=== PATIENT | male | born 1950 | race Caucasian/White ===

== ENCOUNTER 2021-01-19 14:23 | Emergency (ER) | payer OTHER, MEDICARE, SELFPAY ==
[2021-01-19 14:24] VITALS: BP 154/76; PULSE 85; RESP 18; TEMP 36.6; O2SAT 99; BMI 16.6
[2021-01-19 14:40] LABS: Glucose Point of Care 43 mg/dL (70-110)
--- NOTE | 2021-01-19 14:44 | ED_ITS ---
Documented by User: DESI Chavez 01/19/21 15:13 HPI - Altered Mental Status General: Chief Complaint: Altered Mental Status Stated Complaint: hypoglycemic episode Time Seen by Provider: 01/19/21 14:29 History of Present Illness: HPI narrative: Patient is a 62-year-old male who comes to the ED via EMS after complaint of being unresponsive episode at dialysis clinic. His blood sugar at the dialysis clinic was 45 per staff. [facility] staff said patient was in a wheelchair and he had no fall or head trauma during hypoglycemic episode. Patient was diaphoretic and unresponsive in the lobby with a blood sugar 45 and 58 per EMS. Patient was given glucagon by EMS and started to become more responsive. Patient has a PEG tube with continual feed that was stopped around noon today. Upon arrival here in the ED patient's blood sugar was 43. Patient is a resident at [facility]. Patient was at dialysis clinic to get kidney function tests performed and is not currently on dialysis. [facility] [place] [facility] [place] [facility]ing [place] patient's medical information. Patient does not appear to communicate well and current mental status could be baseline. Review of Systems Const: Denies: fever(s), chills or fatigue Eyes: Denies: change in vision or eye discomfort ENMT: Denies: throat pain, odynophagia, nasal discharge or nasal congestion Card: Denies: chest pain, palpitations, edema, swelling of feet/ankles, dyspnea on exertion or orthopnea Resp: Denies: dyspnea, productive cough or non-productive cough GI: Denies: abdominal pain, nausea, vomiting, diarrhea, constipation or hematochezia : Denies: flank pain, difficulty urinating, dysuria or hematuria Musc: Denies: neck pain, back pain or extremity swelling Skin/Breast: Denies: rash or new lesions Neuro: Denies: headache(s), numbness in extremities or weakness in extremities Endo: Reports: other (hypoglycemia) Physical Exam Const: COMMON NORMALS: no acute distress and alert EXAM LIMITATIONS: altered mental status (Patient does not communicate but will look into and give yes or no response) GENERAL APPEARANCE: cooperative and comfortable HENMT: COMMON NORMALS: normocephalic HEAD & SCALP: normocephalic MOUTH: Normal oral and palatal mucosa present THROAT: posterior oropharynx normal and uvula midline Neck/C-Spine: COMMON NORMALS: supple GENERAL: Yes normal visual inspection Resp: COMMON NORMALS: normal respiratory effort, No retractions, No use of accessory muscles and clear to auscultation bilaterally AUSCULTATION: clear to auscultation bilaterally Cardio: COMMON NORMALS: regular rate, regular rhythm, S1 normal heart sound present, S2 normal heart sound present, No gallops present (Cardio), No clicks present (Cardio), No murmurs present (Cardio) and Peripheral pulses 2+ throughout RATE: regular rate RHYTHM: regular rhythm HEART SOUNDS: S1 normal heart sound present and S2 normal heart sound present PERIPHERAL PULSES: Peripheral pulses 2+ throughout GI: COMMON NORMALS: Normal to inspection, nondistended, normoactive bowel sounds present, Soft to palpation, non-tender and no masses PALPATION: Yes Soft to palpation : COMMON NORMALS: Yes no CVA tenderness BLADDER/KIDNEY EXAM: Yes no CVA tenderness Back/Pelvis: COMMON NORMALS: no CVA tenderness Extremity: COMMON NORMALS: normal to inspection and no pedal edema Neuro: SENSORIUM/ORIENTATION: Yes alert Skin: GENERAL SKIN EXAM: dry skin Course ED course: Patient is a 70-year-old male comes to the ED with hypoglycemic episode. I performed the initial history and physical exam of patient's case. Due to patient's acuity I then discussed patient case with Dr. Miles and he will be taking over patient care. Vital Signs: Vital signs: Vital Signs Temperature 97.9 F 01/19/21 14:24 Pulse Rate 98 01/19/21 19:05 Respiratory Rate 16 01/19/21 19:05 Blood Pressure 153/98 01/19/21 19:05 Pulse Oximetry 93 01/19/21 19:05 MDM - Altered Mental Status Lab Data: Attestation: I reviewed the patient's lab results. Labs: Lab Results 01/19/21 01/19/21 01/19/21 Range/Units 14:28 14:56 14:56 WBC 17.6 H (4.0-10.0) 10^3/ uL RBC 2.84 L (4.1-5.3) 10^6/u L Hgb 9.4 L (11.7-16.6) g/dL Hct 29.7 L (42.0-52.0) % MCV 104.6 H (80-94) fL MCH 33.1 (28.0-34.0) pg MCHC 31.6 (30.0-36.0) g/dL RDW 14.7 (12.1-15.1) % Plt Count 192 (130-400) 10^3/c mm MPV 11.7 H (7.4-10.4) fL Neut % (Auto) 86.2 % Lymph % (Auto) 6.7 % Braxton % (Auto) 6.2 % Eos % (Auto) 0.1 % Baso % (Auto) 0.2 % Neut # (Auto) 15.18 H (1.8-7.7) 10^3/u L Lymph # (Auto) 1.2 (0.8-4.8) 10^3/u L Braxton # (Auto) 1.1 H (0.2-0.9) 10^3/u L Eos # (Auto) 0.0 (0.0-0.8) 10^3/u L Baso # (Auto) 0.0 (0.0-0.1) 10^3/u L Nucleated RBC % (a uto) 0 % Nucleated RBCs # 0.0 /100WBC PT (12.1-14.9) SECO NDS INR (0.8-1.2) Sodium 135 L (136-145) mmol/L Potassium 4.3 (3.5-5.1) mmol/L Chloride 96 L (98-107) mmol/L Carbon Dioxide 30 H (22-29) mmol/L Anion Gap 13.3 (5-19) BUN 43 H (8-23) mg/dL Creatinine 2.1 H (0.7-1.2) mg/dL GFR Calculation 31.6 L (90-130) mL/min Glucose 191 H (65-115) mg/dL POC Glucose 43 L (70-110) mg/dL Calculated Osmolal ity 296 H (285-295) mOsm/k g Lactate (0.5-2.2) mmol/L Calcium 8.5 (8.5-10.5) mg/dL Total Bilirubin 0.2 (0.15-1.2) mg/dL AST 19 (0-40) U/L ALT 13 (0-41) U/L Alkaline Phosphata se 71 (40-130) IU/L Total Protein 6.5 L (6.6-8.7) g/dL Albumin 3.9 (3.5-5.2) g/dL Globulin 2.6 (1.3-4.6) g/dL Urine Color (Yellow) Urine Appearance (CLEAR) Urine pH (5-7) Ur Specific Gravit y (1.005-1.030) Urine Protein (Negative) Urine Glucose (UA) (Normal) Urine Ketones (Negative) Urine Blood (Negative) Urine Nitrate (Negative) Urine Bilirubin (Negative) Urine Urobilinogen (Negative) mg/dL Ur Leukocyte Nevin ase (Negative) Urine RBC (0-2) /hpf Urine WBC (0-5) /hpf Ur Squamous Epith Cells (0-5) /hpf Amorphous Sediment Urine Bacteria (NONE) /hpf 01/19/21 01/19/21 01/19/21 Range/Units 14:56 15:36 16:50 WBC (4.0-10.0) 10^3/ uL RBC (4.1-5.3) 10^6/u L Hgb (11.7-16.6) g/dL Hct (42.0-52.0) % MCV (80-94) fL MCH (28.0-34.0) pg MCHC (30.0-36.0) g/dL RDW (12.1-15.1) % Plt Count (130-400) 10^3/c mm MPV (7.4-10.4) fL Neut % (Auto) % Lymph % (Auto) % Braxton % (Auto) % Eos % (Auto) % Baso % (Auto) % Neut # (Auto) (1.8-7.7) 10^3/u L Lymph # (Auto) (0.8-4.8) 10^3/u L Braxton # (Auto) (0.2-0.9) 10^3/u L Eos # (Auto) (0.0-0.8) 10^3/u L Baso # (Auto) (0.0-0.1) 10^3/u L Nucleated RBC % (a uto) % Nucleated RBCs # /100WBC PT (12.1-14.9) SECO NDS INR (0.8-1.2) Sodium (136-145) mmol/L Potassium (3.5-5.1) mmol/L Chloride (98-107) mmol/L Carbon Dioxide (22-29) mmol/L Anion Gap (5-19) BUN (8-23) mg/dL Creatinine (0.7-1.2) mg/dL GFR Calculation (90-130) mL/min Glucose (65-115) mg/dL POC Glucose 84 129 H (70-110) mg/dL Calculated Osmolal ity (285-295) mOsm/k g Lactate 0.2 L (0.5-2.2) mmol/L Calcium (8.5-10.5) mg/dL Total Bilirubin (0.15-1.2) mg/dL AST (0-40) U/L ALT (0-41) U/L Alkaline Phosphata se (40-130) IU/L Total Protein (6.6-8.7) g/dL Albumin (3.5-5.2) g/dL Globulin (1.3-4.6) g/dL Urine Color (Yellow) Urine Appearance (CLEAR) Urine pH (5-7) Ur Specific Gravit y (1.005-1.030) Urine Protein (Negative) Urine Glucose (UA) (Normal) Urine Ketones (Negative) Urine Blood (Negative) Urine Nitrate (Negative) Urine Bilirubin (Negative) Urine Urobilinogen (Negative) mg/dL Ur Leukocyte Nevin ase (Negative) Urine RBC (0-2) /hpf Urine WBC (0-5) /hpf Ur Squamous Epith Cells (0-5) /hpf Amorphous Sediment Urine Bacteria (NONE) /hpf 01/19/21 01/19/21 01/19/21 Range/Units 17:20 18:00 19:51 WBC (4.0-10.0) 10^3/ uL RBC (4.1-5.3) 10^6/u L Hgb (11.7-16.6) g/dL Hct (42.0-52.0) % MCV (80-94) fL MCH (28.0-34.0) pg MCHC (30.0-36.0) g/dL RDW (12.1-15.1) % Plt Count (130-400) 10^3/c mm MPV (7.4-10.4) fL Neut % (Auto) % Lymph % (Auto) % Braxton % (Auto) % Eos % (Auto) % Baso % (Auto) % Neut # (Auto) (1.8-7.7) 10^3/u L Lymph # (Auto) (0.8-4.8) 10^3/u L Braxton # (Auto) (0.2-0.9) 10^3/u L Eos # (Auto) (0.0-0.8) 10^3/u L Baso # (Auto) (0.0-0.1) 10^3/u L Nucleated RBC % (a uto) % Nucleated RBCs # /100WBC PT 13.70 (12.1-14.9) SECO NDS INR 1.02 (0.8-1.2) Sodium (136-145) mmol/L Potassium (3.5-5.1) mmol/L Chloride (98-107) mmol/L Carbon Dioxide (22-29) mmol/L Anion Gap (5-19) BUN (8-23) mg/dL Creatinine (0.7-1.2) mg/dL GFR Calculation (90-130) mL/min Glucose (65-115) mg/dL POC Glucose 147 H (70-110) mg/dL Calculated Osmolal ity (285-295) mOsm/k g Lactate (0.5-2.2) mmol/L Calcium (8.5-10.5) mg/dL Total Bilirubin (0.15-1.2) mg/dL AST (0-40) U/L ALT (0-41) U/L Alkaline Phosphata se (40-130) IU/L Total Protein (6.6-8.7) g/dL Albumin (3.5-5.2) g/dL Globulin (1.3-4.6) g/dL Urine Color Yellow (Yellow) Urine Appearance Clear (CLEAR) Urine pH 7 (5-7) Ur Specific Gravit y 1.000 L (1.005-1.030) Urine Protein 1+ H (Negative) Urine Glucose (UA) Trace H (Normal) Urine Ketones Negative (Negative) Urine Blood Neg (Negative) Urine Nitrate Negative (Negative) Urine Bilirubin Neg (Negative) Urine Urobilinogen Norm (Negative) mg/dL Ur Leukocyte Nevin ase Negative (Negative) Urine RBC 0-4 H (0-2) /hpf Urine WBC 0-4 H (0-5) /hpf Ur Squamous Epith Cells 0-4 H (0-5) /hpf Amorphous Sediment Not Reportable Urine Bacteria Trace (NONE) /hpf Discharge Plan Discharge Patient Disposition: Home Clinical Impression: Hypoglycemia, Acute dehydration, Chronic kidney disease Condition: Stable Prescriptions: New Lantus Solostar U-100 Insulin 100 unit/mL (3 mL) insulin pen 10 unit SUBCUT BID Qty: 3 RF: 0 Discontinued Lantus Solostar U-100 Insulin 100 unit/mL (3 mL) Insulin Pen 15 unit SUBCUT BID RF: 0 No Action carvedilol 6.25 mg Tablet 6.25 mg feeding tube BID RF: 0 citalopram 10 mg/5 mL solution 40 mg feeding tube DAILY@07 RF: 0 Aspir-81 81 mg Tablet,Delayed Release (Dr/Ec) 81 mg feeding tube DAILY@07 RF: 0 GlucaGen HypoKit 1 mg Recon Soln 1 mg SUBCUT PRN RF: 0 Humalog Kobe KwikPen U-100 100 unit/mL Insulin Pen, Half-Unit See Rx Instructions .ROUTE .COMPLEX RF: 0 sulfasalazine 500 mg tablet 1,000 mg feeding tube TID@07,12,20 RF: 0 potassium chloride 20 mEq/15 mL Liquid 10 meq PO DAILY@08 RF: 0 lorazepam 0.5 mg Tablet 0.5 mg feeding tube BID RF: 0 risperidone 1 mg/mL solution 0.25 mg PO DAILY@07 RF: 0 sodium bicarbonate 650 mg Tablet 1,300 mg feeding tube TID@,12,20 RF: 0 pyridoxine (vitamin B6) 50 mg Tablet 50 mg feeding tube DAILY@07 RF: 0 nystatin 100,000 unit/gram Powder 1 applic TOPICAL BID RF: 0 diclofenac sodium 1 % Gel 4 g TOPICAL BID RF: 0 Jevity 1.5 Mark 0.06 gram-1.5 kcal/mL Liquid See Rx Instructions .ROUTE .COMPLEX RF: 0 Discharge Orders: Discharge ED (Routine); Ordered 01/19/21 Ordered By: Chris Miles Referrals: Rudolph Birmingham DO [Primary Care Provider] - Discharge Diet: Advance as tolerated Discharge Activity: Resume usual activity Patient Instructions: Opioid Safety Activity Restrictions/Additional Instructions: You have had an episode of dehydration and low blood sugar. We have restarted your food pump and it has now normalized. I discussed with your nurse that you have had multiple episodes at the [place] [facility] of low blood sugar over the past couple days. Please lower your Lantus dose to 10 units twice a day and hold the sliding scale insulin if you have low blood sugars. Return to the ER with low blood sugars or any worrisome symptoms. Please continue to check your blood pressures at the [place] [facility] and bring them to your doctor in a couple days as your blood pressure has been high here Coding Level of Care Code ED Child Psychology Teacher for Chg Fwd Exam Comprehensive Documented by User: Chris Miles MD 01/19/21 20:04 HPI - Altered Mental Status General: Chief Complaint: Altered Mental Status Stated Complaint: hypoglycemic episode Time Seen by Provider: 01/19/21 14:29 Course Vital Signs: Vital signs: Vital Signs Temperature 97.9 F 01/19/21 14:24 Pulse Rate 98 01/19/21 19:05 Respiratory Rate 16 01/19/21 19:05 Blood Pressure 153/98 01/19/21 19:05 Pulse Oximetry 93 01/19/21 19:05 MDM - Altered Mental Status MDM Narrative: Medical decision making narrative: The patient is a 70-year-old male with past medical history diabetes, chronic kidney disease, stroke with history of dysphagia and G-tube. He was sent to a dialysis center for kidney function tests and was found unresponsive there. Glucose was hypoglycemic in the 40s. With significant difficulty getting an IV on him of the ultimately we did. He was given multiple doses of glucagon with good increase in his blood glucose. Also he was given a liter of fluids which greatly helped his condition as well. He admitted to being back to his baseline and wants to go back to his [place] [facility]. His kidney function is unchanged from his most recent [place] [facility] lab December 30 which shows BUN of 45 and creatinine of 2.3. His numbers are slightly better than that here. No significant cause of infection found he has a normal urine and chest x-ray. White count was 17.6 but that is likely from the stress of hypoglycemia and dehydration. Head CT normal. He is stable for discharge back to the [place] [facility]. I lowered his Lantus dose and recommended she continue to monitor his glucose and bring him back with any hypoglycemia or altered mental status. Lab Data: Labs: Lab Results 01/19/21 01/19/21 01/19/21 Range/Units 14:28 14:56 14:56 WBC 17.6 H (4.0-10.0) 10^3/ uL RBC 2.84 L (4.1-5.3) 10^6/u L Hgb 9.4 L (11.7-16.6) g/dL Hct 29.7 L (42.0-52.0) % MCV 104.6 H (80-94) fL MCH 33.1 (28.0-34.0) pg MCHC 31.6 (30.0-36.0) g/dL RDW 14.7 (12.1-15.1) % Plt Count 192 (130-400) 10^3/c mm MPV 11.7 H (7.4-10.4) fL Neut % (Auto) 86.2 % Lymph % (Auto) 6.7 % Braxton % (Auto) 6.2 % Eos % (Auto) 0.1 % Baso % (Auto) 0.2 % Neut # (Auto) 15.18 H (1.8-7.7) 10^3/u L Lymph # (Auto) 1.2 (0.8-4.8) 10^3/u L Braxton # (Auto) 1.1 H (0.2-0.9) 10^3/u L Eos # (Auto) 0.0 (0.0-0.8) 10^3/u L Baso # (Auto) 0.0 (0.0-0.1) 10^3/u L Nucleated RBC % (a uto) 0 % Nucleated RBCs # 0.0 /100WBC PT (12.1-14.9) SECO NDS INR (0.8-1.2) Sodium 135 L (136-145) mmol/L Potassium 4.3 (3.5-5.1) mmol/L Chloride 96 L (98-107) mmol/L Carbon Dioxide 30 H (22-29) mmol/L Anion Gap 13.3 (5-19) BUN 43 H (8-23) mg/dL Creatinine 2.1 H (0.7-1.2) mg/dL GFR Calculation 31.6 L (90-130) mL/min Glucose 191 H (65-115) mg/dL POC Glucose 43 L (70-110) mg/dL Calculated Osmolal ity 296 H (285-295) mOsm/k g Lactate (0.5-2.2) mmol/L Calcium 8.5 (8.5-10.5) mg/dL Total Bilirubin 0.2 (0.15-1.2) mg/dL AST 19 (0-40) U/L ALT 13 (0-41) U/L Alkaline Phosphata se 71 (40-130) IU/L Total Protein 6.5 L (6.6-8.7) g/dL Albumin 3.9 (3.5-5.2) g/dL Globulin 2.6 (1.3-4.6) g/dL Urine Color (Yellow) Urine Appearance (CLEAR) Urine pH (5-7) Ur Specific Gravit y (1.005-1.030) Urine Protein (Negative) Urine Glucose (UA) (Normal) Urine Ketones (Negative) Urine Blood (Negative) Urine Nitrate (Negative) Urine Bilirubin (Negative) Urine Urobilinogen (Negative) mg/dL Ur Leukocyte Nevin ase (Negative) Urine RBC (0-2) /hpf Urine WBC (0-5) /hpf Ur Squamous Epith Cells (0-5) /hpf Amorphous Sediment Urine Bacteria (NONE) /hpf 01/19/21 01/19/21 01/19/21 Range/Units 14:56 15:36 16:50 WBC (4.0-10.0) 10^3/ uL RBC (4.1-5.3) 10^6/u L Hgb (11.7-16.6) g/dL Hct (42.0-52.0) % MCV (80-94) fL MCH (28.0-34.0) pg MCHC (30.0-36.0) g/dL RDW (12.1-15.1) % Plt Count (130-400) 10^3/c mm MPV (7.4-10.4) fL Neut % (Auto) % Lymph % (Auto) % Braxton % (Auto) % Eos % (Auto) % Baso % (Auto) % Neut # (Auto) (1.8-7.7) 10^3/u L Lymph # (Auto) (0.8-4.8) 10^3/u L Braxton # (Auto) (0.2-0.9) 10^3/u L Eos # (Auto) (0.0-0.8) 10^3/u L Baso # (Auto) (0.0-0.1) 10^3/u L Nucleated RBC % (a uto) % Nucleated RBCs # /100WBC PT (12.1-14.9) SECO NDS INR (0.8-1.2) Sodium (136-145) mmol/L Potassium (3.5-5.1) mmol/L Chloride (98-107) mmol/L Carbon Dioxide (22-29) mmol/L Anion Gap (5-19) BUN (8-23) mg/dL Creatinine (0.7-1.2) mg/dL GFR Calculation (90-130) mL/min Glucose (65-115) mg/dL POC Glucose 84 129 H (70-110) mg/dL Calculated Osmolal ity (285-295) mOsm/k g Lactate 0.2 L (0.5-2.2) mmol/L Calcium (8.5-10.5) mg/dL Total Bilirubin (0.15-1.2) mg/dL AST (0-40) U/L ALT (0-41) U/L Alkaline Phosphata se (40-130) IU/L Total Protein (6.6-8.7) g/dL Albumin (3.5-5.2) g/dL Globulin (1.3-4.6) g/dL Urine Color (Yellow) Urine Appearance (CLEAR) Urine pH (5-7) Ur Specific Gravit y (1.005-1.030) Urine Protein (Negative) Urine Glucose (UA) (Normal) Urine Ketones (Negative) Urine Blood (Negative) Urine Nitrate (Negative) Urine Bilirubin (Negative) Urine Urobilinogen (Negative) mg/dL Ur Leukocyte Nevin ase (Negative) Urine RBC (0-2) /hpf Urine WBC (0-5) /hpf Ur Squamous Epith Cells (0-5) /hpf Amorphous Sediment Urine Bacteria (NONE) /hpf 01/19/21 01/19/21 01/19/21 Range/Units 17:20 18:00 19:51 WBC (4.0-10.0) 10^3/ uL RBC (4.1-5.3) 10^6/u L Hgb (11.7-16.6) g/dL Hct (42.0-52.0) % MCV (80-94) fL MCH (28.0-34.0) pg MCHC (30.0-36.0) g/dL RDW (12.1-15.1) % Plt Count (130-400) 10^3/c mm MPV (7.4-10.4) fL Neut % (Auto) % Lymph % (Auto) % Braxton % (Auto) % Eos % (Auto) % Baso % (Auto) % Neut # (Auto) (1.8-7.7) 10^3/u L Lymph # (Auto) (0.8-4.8) 10^3/u L Braxton # (Auto) (0.2-0.9) 10^3/u L Eos # (Auto) (0.0-0.8) 10^3/u L Baso # (Auto) (0.0-0.1) 10^3/u L Nucleated RBC % (a uto) % Nucleated RBCs # /100WBC PT 13.70 (12.1-14.9) SECO NDS INR 1.02 (0.8-1.2) Sodium (136-145) mmol/L Potassium (3.5-5.1) mmol/L Chloride (98-107) mmol/L Carbon Dioxide (22-29) mmol/L Anion Gap (5-19) BUN (8-23) mg/dL Creatinine (0.7-1.2) mg/dL GFR Calculation (90-130) mL/min Glucose (65-115) mg/dL POC Glucose 147 H (70-110) mg/dL Calculated Osmolal ity (285-295) mOsm/k g Lactate (0.5-2.2) mmol/L Calcium (8.5-10.5) mg/dL Total Bilirubin (0.15-1.2) mg/dL AST (0-40) U/L ALT (0-41) U/L Alkaline Phosphata se (40-130) IU/L Total Protein (6.6-8.7) g/dL Albumin (3.5-5.2) g/dL Globulin (1.3-4.6) g/dL Urine Color Yellow (Yellow) Urine Appearance Clear (CLEAR) Urine pH 7 (5-7) Ur Specific Gravit y 1.000 L (1.005-1.030) Urine Protein 1+ H (Negative) Urine Glucose (UA) Trace H (Normal) Urine Ketones Negative (Negative) Urine Blood Neg (Negative) Urine Nitrate Negative (Negative) Urine Bilirubin Neg (Negative) Urine Urobilinogen Norm (Negative) mg/dL Ur Leukocyte Nevin ase Negative (Negative) Urine RBC 0-4 H (0-2) /hpf Urine WBC 0-4 H (0-5) /hpf Ur Squamous Epith Cells 0-4 H (0-5) /hpf Amorphous Sediment Not Reportable Urine Bacteria Trace (NONE) /hpf Discharge Plan Discharge Patient Disposition: Home Clinical Impression: Hypoglycemia, Acute dehydration, Chronic kidney disease Condition: Stable Prescriptions: New Lantus Solostar U-100 Insulin 100 unit/mL (3 mL) insulin pen 10 unit SUBCUT BID Qty: 3 RF: 0 Discontinued Lantus Solostar U-100 Insulin 100 unit/mL (3 mL) Insulin Pen 15 unit SUBCUT BID RF: 0 No Action carvedilol 6.25 mg Tablet 6.25 mg feeding tube BID RF: 0 citalopram 10 mg/5 mL solution 40 mg feeding tube DAILY@07 RF: 0 Aspir-81 81 mg Tablet,Delayed Release (Dr/Ec) 81 mg feeding tube DAILY@07 RF: 0 GlucaGen HypoKit 1 mg Recon Soln 1 mg SUBCUT PRN RF: 0 Humalog Kobe KwikPen U-100 100 unit/mL Insulin Pen, Half-Unit See Rx Instructions .ROUTE .COMPLEX RF: 0 sulfasalazine 500 mg tablet 1,000 mg feeding tube TID@07,12,20 RF: 0 potassium chloride 20 mEq/15 mL Liquid 10 meq PO DAILY@08 RF: 0 lorazepam 0.5 mg Tablet 0.5 mg feeding tube BID RF: 0 risperidone 1 mg/mL solution 0.25 mg PO DAILY@07 RF: 0 sodium bicarbonate 650 mg Tablet 1,300 mg feeding tube TID@07,12,20 RF: 0 pyridoxine (vitamin B6) 50 mg Tablet 50 mg feeding tube DAILY@07 RF: 0 nystatin 100,000 unit/gram Powder 1 applic TOPICAL BID RF: 0 diclofenac sodium 1 % Gel 4 g TOPICAL BID RF: 0 Jevity 1.5 Mark 0.06 gram-1.5 kcal/mL Liquid See Rx Instructions .ROUTE .COMPLEX RF: 0 Discharge Orders: Discharge ED (Routine); Ordered 01/19/21 Ordered By: Chris Miles Referrals: Rudolph Birmingham DO [Primary Care Provider] - Discharge Diet: Advance as tolerated Discharge Activity: Resume usual activity Patient Instructions: Opioid Safety Activity Restrictions/Additional Instructions: You have had an episode of dehydration and low blood sugar. We have restarted your food pump and it has now normalized. I discussed with your nurse that you have had multiple episodes at the [place] [facility] of low blood sugar over the past couple days. Please lower your Lantus dose to 10 units twice a day and hold the sliding scale insulin if you have low blood sugars. Return to the ER with low blood sugars or any worrisome symptoms. Please continue to check your blood pressures at the [place] [facility] and bring them to your doctor in a couple days as your blood pressure has been high here Coding Level of Care Code ED Child Psychology Teacher for [place] Fwd Exam Comprehensive
--- NOTE | 2021-01-19 15:13 | PC.NURSE ---
Multiple attempts at IV placement unsuccessful. Unable to get US guided or straight stick IV access. Dr Miles notified.
[2021-01-19 15:40] LABS: Glucose Point of Care 84 mg/dL (70-110)
[2021-01-19 16:03] VITALS: BP 159/81; PULSE 81; RESP 12; O2SAT 100
--- NOTE | 2021-01-19 16:04 | PC.NURSE ---
US guided IV placed by Ryan Gillespie RN. Blood drawn and sent to lab. Pt started on Jevity 1.2. Residual checked and showed 0ml. Tube flushed with 30ml water. Tube feed started at 50ml/hr with a 60ml flush every 4 hours per [facility] staff instructions.
[2021-01-19 16:21] LABS: Basophils % 0.2 %; Eosinophils % 0.1 %; Hematocrit 29.7 % (42.0-52.0); Hemoglobin 9.4 g/dL (11.7-16.6); Lymphocytes # 1.2 10^3/uL (0.8-4.8); Lymphocytes % 6.7 %; Mean Corpuscular HGB Conc 31.6 g/dL (30.0-36.0); Mean Corpuscular Hemoglobin 33.1 pg (28.0-34.0); Mean Corpuscular Volume 104.6 fL (80-94); Mean Platelet Volume 11.7 fL (7.4-10.4); Monocytes # 1.1 10^3/uL (0.2-0.9); Monocytes % 6.2 %; Neutrophils # 15.18 10^3/uL (1.8-7.7); Neutrophils % 86.2 %; Nucleated Red Blood Cells % 0 %; Platelet Count 192 10^3/cmm (130-400); Red Blood Count 2.84 10^6/uL (4.1-5.3); Red Cell Distribution Width 14.7 % (12.1-15.1); White Blood Count 17.6 10^3/uL (4.0-10.0)
[2021-01-19 16:45] LABS: Alanine Aminotransferase 13 U/L (0-41); Albumin Level 3.9 g/dL (3.5-5.2); Alkaline Phosphatase 71 IU/L (40-130); Anion Gap 13.3 (5-19); Aspartate Amino Transferase 19 U/L (0-40); Blood Urea Nitrogen 43 mg/dL (8-23); Calcium 8.5 mg/dL (8.5-10.5); Carbon Dioxide 30 mmol/L (22-29); Chloride 96 mmol/L (98-107); Globulin 2.6 g/dL (1.3-4.6); Glomerular Filtration Rate 31.6 mL/min (90-130); Glucose 191 mg/dL (65-115); Osmolality Calculated 296 mOsm/kg (285-295); Potassium 4.3 mmol/L (3.5-5.1); Sodium 135 mmol/L (136-145); Total Bilirubin 0.2 mg/dL (0.15-1.2); Total Protein 6.5 g/dL (6.6-8.7)
--- NOTE | 2021-01-19 16:49 | PC.PHAR ---
[facility] KEPT TRYING TO FAX OVER MAR AND TREATMENT LIST-CAROLYN FROM [facility] BROUGHT OVER MAR AND TREATMENT LIST-MADE COPY AND PUT ONE IN PTS CHART-CAROLYN STATES THE PT HAD THE AM LANTUS BUT NONE OF THE SS HUMALOG-
[2021-01-19 16:53] LABS: Glucose Point of Care 129 mg/dL (70-110)
--- NOTE | 2021-01-19 16:54 | XRR_ITS ---
PROCEDURE INFORMATION: Exam: XR Chest Exam date and time: 01/19/2021 5:10 PM Age: 70 years old Clinical indication: Shortness of breath; Additional info: Reduced breath sounds TECHNIQUE: Imaging protocol: XR of the chest. Views: 1 view. Total images: 1 COMPARISON: No relevant prior studies available. FINDINGS: Lungs: No visible active interstitial or alveolar airspace disease. Pleural spaces: Unremarkable. No pleural effusion. No pneumothorax. Heart/Mediastinum: Cardiac structures and configuration with arteriosclerosis. Bones/joints: Left shoulder prosthesis. XR/XR chest 1V portable [id number] IMPRESSION: Nonacute.
--- NOTE | 2021-01-19 16:54 | CTR_ITS ---
PROCEDURE INFORMATION: Exam: CT Head Without Contrast Exam date and time: 01/19/2021 5:09 PM Age: 70 years old Clinical indication: Altered mental status/memory loss TECHNIQUE: Imaging protocol: Computed tomography of the head without contrast. Total images: 188 Radiation optimization: All CT scans at this facility use at least one of these dose optimization techniques: automated exposure control; mA and/or kV adjustment per patient size (includes targeted exams where dose is matched to clinical indication); or iterative reconstruction. COMPARISON: No relevant prior studies available. RADIATION DOSE METRICS: Total DLP (mGy-cm): 668.34 FINDINGS: Brain: No evidence of active or acute intracranial pathologic process, hemorrhage, or trauma. 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 Moderate small vessel ischemic disease with senile periventricular leukomalacia. No visible hyperdense MCA or insular ribbon sign Cerebral and cerebellar atrophy with ventricular dilatation greater than that anticipated for patient's chronological age. No mass effect. No midline shift. Cerebral ventricles: No ventriculomegaly. Bones/joints: Unremarkable. No acute fracture. Paranasal sinuses: Visualized sinuses are unremarkable. No fluid levels. Mastoid air cells: Visualized mastoid air cells are well aerated. Soft tissues: Unremarkable. CT/CT head wo con* [id number] IMPRESSION: No evidence of active or acute intracranial pathologic process, hemorrhage, or trauma. Radiation Dose CTDIVOL = (mGy): DLP = 668.34 (mGy-cm)
[2021-01-19 17:12] LABS: Lactate (Lactic Acid level) 0.2 mmol/L (0.5-2.2)
[2021-01-19 18:01] LABS: INR 1.02 (0.8-1.2)
[2021-01-19] MEDS: sodium chloride 0.9% 1,000 ML 999 ML IV (19:02)
[2021-01-19] MEDS: cefTRIAXone 1,000 MG in sodium chloride 0.9% (plus) 50 ML 100 MG IV (19:02)
[2021-01-19 19:05] VITALS: BP 153/98; PULSE 98; RESP 16; O2SAT 93
[2021-01-19 19:27] LABS: Add Urine Microscopic? YES; Bacteria Urine TRACE /hpf; Bilirubin Urine Neg (Negative); Blood Urine Neg (Negative); Glucose Urine UA Trace (Normal); Ketones Urine Negative (Negative); Leukocyte Esterase Urine Negative (Negative); Nitrate Urine Negative (Negative); Protein Urine 1+ (Negative); RBC Urine 0-4 /hpf (0-2); Squamous Epithelial Cell Urine 0-4 /hpf (0-5); Urine Appearance Clear (CLEAR); Urine Color Yellow (Yellow); Urobilinogen Urine Norm (Negative); WBC Urine 0-4 /hpf (0-5); pH Urine 7 (5-7)
[2021-01-19 19:54] LABS: Glucose Point of Care 147 mg/dL (70-110)
[2021-01-19 21:34] VITALS: PULSE 102; RESP 18; O2SAT 96
== END 2021-01-19 21:36 | disposition home or self-care (01) ==
PROVIDERS: Physician Assistant; Emergency Provider Family Medicine; PCP Internal Medicine
DX: E16.2 Hypoglycemia, unspecified (principal); N18.9 Chronic kidney disease, unspecified; Z99.2 Dependence on renal dialysis; E86.0 Dehydration; Z79.82 Long term (current) use of aspirin; Z79.4 Long term (current) use of insulin
CPT/HCPCS: 36415; 36416; 70450; 71045; 80053; 81001; 82962; 83605; 85025; 85610; 96361; 96365; 96372; 96375; 99284; J0696; J1610; J7030

== ENCOUNTER 2021-04-01 10:17 | Emergency (ER) | payer OTHER, MEDICARE, SELFPAY ==
[2021-04-01 10:19] VITALS: BP 182/92; PULSE 78; RESP 17; TEMP 37.1; O2SAT 98; BMI 18.1
[2021-04-01 10:29] VITALS: BP 168/90; PULSE 74; RESP 18; O2SAT 98
--- NOTE | 2021-04-01 10:51 | ED_ITS ---
HPI - General Adult General: Chief complaint: General Medical Stated complaint: NEEDS PEG TUBE REPLACED Time Seen by Provider: 04/01/21 10:18 History of Present Illness: HPI narrative: 60-year-old male presents emergency room from local correction after feeding tube having been displaced. Its twice in the past week evidently this is happened. No other complaints or problems. Onset (ago): minute(s) Associated symptoms: Deny chest pain, dyspnea, malaise, nausea or vomiting Review of Systems Const: Denies: fever(s), chills, body aches, change in appetite, fatigue or malaise Card: Denies: chest pain, edema, dyspnea on exertion or orthopnea Resp: Denies: dyspnea, productive cough or non-productive cough GI: Denies: abdominal pain, nausea, vomiting, hematemesis, coffee ground emesis, diarrhea, constipation, bloating, hematochezia or melena Physical Exam Const: COMMON NORMALS: no acute distress GENERAL APPEARANCE: cooperative and comfortable HENMT: COMMON NORMALS: normocephalic, atraumatic and hearing grossly normal bilaterally HEAD & SCALP: normocephalic and atraumatic Neck/C-Spine: COMMON NORMALS: no JVD Resp: COMMON NORMALS: normal respiratory effort, No retractions, No use of accessory muscles and clear to auscultation bilaterally AUSCULTATION: clear to auscultation bilaterally Cardio: COMMON NORMALS: no JVD, regular rate, regular rhythm and No murmurs present (Cardio) RATE: regular rate RHYTHM: regular rhythm GI: COMMON NORMALS: Soft to palpation and No hepatosplenomegaly present AUSCULTATION: Yes normoactive bowel sounds PALPATION: Yes Soft to palpation, No Tenderness to palpation present (GI), No Guarding due to palpation present (GI) and Yes No hepatosplenomegaly present Extremity: COMMON NORMALS: normal to inspection, capillary refill normal, no clubbing, cyanosis or edema, no calf tenderness and no pedal edema Skin: COMMON NORMALS: no rashes or lesions noted GENERAL SKIN EXAM: no rashes or lesions noted Procedures Feeding Tube Replacement Type of Tube: gastrostomy Insertion Site Prior to Procedure: clean Tube Used for Reinsertion: other Citizen [place] Tube Size (F): 17 Balloon size (mL): 7 Verification of Placement: auscultation Tube Secured by: attachment device Patient Tolerated Procedure: well Complications: local bleeding (minor) Course Vital Signs: Vital signs: Vital Signs Temperature 98.7 F 04/01/21 10:19 Pulse Rate 74 04/01/21 10:29 Respiratory Rate 18 04/01/21 10:29 Blood Pressure 168/90 04/01/21 10:29 Pulse Oximetry 98 04/01/21 10:29 MDM - General Adult MDM Narrative: Medical decision making narrative: Abdominal wall ostomy site in place with some small amount of dried blood about it no active bleeding. GI tube replaced with moderate difficulty. Was able to place and secure. Will discharge back to the correction small amount of blood around the eyes from irritation from placement of the tube no active bleeding of concern. Discharge Plan Discharge Patient Disposition: Home Clinical Impression: PEG tube malfunction Condition: Stable Prescriptions: No Action carvedilol 6.25 mg Tablet 6.25 mg feeding tube BID RF: 0 citalopram 10 mg/5 mL solution 40 mg feeding tube DAILY@07 RF: 0 Aspir-81 81 mg Tablet,Delayed Release (Dr/Ec) 81 mg feeding tube DAILY@07 RF: 0 GlucaGen HypoKit 1 mg Recon Soln 1 mg SUBCUT PRN RF: 0 Humalog Kobe KwikPen U-100 100 unit/mL Insulin Pen, Half-Unit See Rx Instructions .ROUTE .COMPLEX RF: 0 sulfasalazine 500 mg tablet 1,000 mg feeding tube TID@, RF: 0 potassium chloride 20 mEq/15 mL Liquid 10 meq PO DAILY@08 RF: 0 lorazepam 0.5 mg Tablet 0.5 mg feeding tube BID RF: 0 risperidone 1 mg/mL solution 0.25 mg PO DAILY@07 RF: 0 sodium bicarbonate 650 mg Tablet 1,300 mg feeding tube TID@,20 RF: 0 pyridoxine (vitamin B6) 50 mg Tablet 50 mg feeding tube DAILY@07 RF: 0 nystatin 100,000 unit/gram Powder 1 applic TOPICAL BID RF: 0 diclofenac sodium 1 % Gel 4 g TOPICAL BID RF: 0 Jevity 1.5 Mark 0.06 gram-1.5 kcal/mL Liquid See Rx Instructions .ROUTE .COMPLEX RF: 0 Lantus Solostar U-100 Insulin 100 unit/mL (3 mL) insulin pen 10 unit SUBCUT BID Qty: 3 RF: 0 Discharge Orders: Discharge ED (Routine); Ordered 04/01/21 Ordered By: Melvin Lipscomb Referrals: Rudolph Birmingham DO [Primary Care Provider] - Discharge Diet: Usual diet Discharge Activity: Resume usual activity Patient Instructions: Opioid Safety Coding Level of Care Code ED Meat Curer for Chg Fwd Exam Comprehensive
[2021-04-01 11:53] VITALS: BP 168/90; PULSE 87; RESP 17; O2SAT 100
== END 2021-04-01 12:02 | disposition home or self-care (01) ==
PROVIDERS: Emergency Provider Family Medicine; PCP Internal Medicine
DX: K94.20 Gastrostomy complication, unspecified (principal); Z79.82 Long term (current) use of aspirin; Z79.4 Long term (current) use of insulin
CPT/HCPCS: 43762; 99282

== ENCOUNTER 2021-07-11 10:41 | Emergency (ER) | payer OTHER, MEDICARE, SELFPAY ==
[2021-07-11 10:53] VITALS: BP 197/93; PULSE 110; RESP 18; TEMP 36.9; O2SAT 98; BMI 20.7
--- NOTE | 2021-07-11 11:00 | XRR_ITS ---
PROCEDURE INFORMATION: Exam: XR Chest Exam date and time: 07/11/2021 11:00 AM Age: 71 years old Clinical indication: Cough and dyspnea; Patient HX: PT non verbal, unable to obtain history; Additional info: Dyspnea/cough TECHNIQUE: Imaging protocol: XR of the chest. Views: 1 view. COMPARISON: CR XR chest 1V portable [id number] 01/19/2021 5:51 PM FINDINGS: Lungs: Unremarkable. No consolidation. Pleural spaces: Unremarkable. No pleural effusion. No pneumothorax. Heart/Mediastinum: Unremarkable. No cardiomegaly. Bones/joints: No acute findings. Left shoulder prosthesis. XR/XR chest 1V portable [id number] IMPRESSION: No acute findings. Radiation Dose CTDIVOL = (mGy): DLP = (mGy-cm)
--- NOTE | 2021-07-11 11:00 | CT_ITS ---
WS: [id number] CT ABDOMEN PELVIS TECHNIQUE: Noncontrast CT of the abdomen and pelvis with coronal and sagittal reformatted images. CLINICAL INFORMATION: abd pain COMPARISON: CT November 21, 2020 DLP: 1098.[address] scans at [facility] use at least one of these dose optimization techniques: automated e xposure control; mA and/or kV adjustment per patient size (includes targeted exams where dose is matc hed to clinical indication); or iterative reconstruction. FINDINGS: Lung bases are well aerated. Stable gastrostomy. Noncontrast liver is normal. Small esophageal hiatal hernia. Noncontrast spleen is normal. Fatty atrophy of the pancreas. Adrenal glands are normal. Bila teral renal cortical atrophy. Bilateral renal cysts largest on the right measuring 3.2 cm. No hydrone phrosis. Normal caliber abdominal aorta. Bilateral THAs degrade images in the pelvis. Normal sigmoid colon. Prior postoperative changes right hemicolectomy with anastomosis. No evidence o f small or large bowel obstruction. Normal caliber small bowel. Persistent air within the colon. No a bdominal or pelvic lymphadenopathy. CT/CT abdomen pelvis wo con [id number] IMPRESSION: 1. No acute abdominal or pelvic findings. 2. Stable cholelithiasis. No gallbladder wall thickening or pericholecystic fl uid. 3. Stable gastrostomy with small esophageal hiatal hernia. 4. Bilateral renal cortical atrophy. No hydronephrosis. 5. Bilateral renal cysts. 6. Prior postoperative changes right hemicolectomy. No evidence of small or la rge bowel obstruction. 7. Bilateral THAs. .
[2021-07-11 11:37] VITALS: BP 197/93; PULSE 105; RESP 20; O2SAT 99
[2021-07-11 11:50] LABS: Basophils % 0.2 %; Eosinophils # 0.1 10^3/uL (0.0-0.8); Eosinophils % 0.7 %; Hematocrit 31.7 % (42.0-52.0); Hemoglobin 10.2 g/dL (11.7-16.6); Lymphocytes # 1.6 10^3/uL (0.8-4.8); Lymphocytes % 17.6 %; Mean Corpuscular HGB Conc 32.2 g/dL (30.0-36.0); Mean Corpuscular Hemoglobin 32.6 pg (28.0-34.0); Mean Corpuscular Volume 101.3 fl (80-94); Mean Platelet Volume 10.7 fL (7.4-10.4); Monocytes # 0.8 10^3/uL (0.2-0.9); Neutrophils # 6.36 10^3/uL (1.8-7.7); Nucleated Red Blood Cells % 0 %; Platelet Count 220 10^3/cmm (130-400); Red Blood Count 3.13 10^6/uL (4.1-5.3); Red Cell Distribution Width 12.2 % (12.1-15.1); White Blood Count 8.8 10^3/uL (4.0-10.0)
[2021-07-11 11:52] LABS: Blood Urine 2+ (Negative); Glucose Urine UA 4+ (Normal); Ketones Urine Negative (Negative); Protein Urine Trace (Negative); Specific Gravity, Urine 1.005 (1.005-1.030); Urine Appearance Clear (CLEAR); Urine Color Yellow (Yellow); pH Urine 7 (5-7)
[2021-07-11 11:53] LABS: Add Urine Microscopic? YES; Bilirubin Urine Neg (Negative); Leukocyte Esterase Urine Negative (Negative); Nitrate Urine Negative (Negative); Urobilinogen Urine Norm (Negative); WBC Urine RARE /hpf (0-5)
--- NOTE | 2021-07-11 11:53 | W.ED.ABDPA2 ---
HPI - Abdominal Pain General: Chief Complaint: Abdominal Pain Stated Complaint: RLQ PAIN Time Seen by Provider: 07/11/21 10:46 History of Present Illness: HPI narrative: 71-year-old male resident of a assisted. He has limited communication due to cognitive dysfunction. He is relating that he has pain in the indicates to the right lower quadrant. There is no report of vomiting or diarrhea. Patient is diabetic. MD elicited complaint: abdominal pain Onset (ago): hour(s) Pain Consistency: constant Location: RLQ Severity: moderate Associated Symptoms: Reports GI cramping and poor appetite; Denies bloating, change in bowel habits, change in stool character, chills, coffee ground emesis, diarrhea, fever(s), hematochezia, hematuria, hematemesis, fecal incontinence, loose stools, nausea and vomiting Review of Systems General: Reports: Other (Limited due to patient's mental capacity and ability to communicate) Const: Denies: fever(s) or chills GI: Reports: GI cramping; Denies: nausea, vomiting, hematemesis, coffee ground emesis, diarrhea, bloating, fecal incontinence, change in bowel habits, change in stool character or hematochezia : Denies: hematuria Physical Exam Const: COMMON NORMALS: no acute distress ORIENTATION/CONSCIOUSNESS: Yes awake, Yes oriented to person, Yes oriented to place and Yes oriented to time HENMT: COMMON NORMALS: normocephalic, atraumatic and hearing grossly normal bilaterally HEAD & SCALP: normocephalic and atraumatic Neck/C-Spine: COMMON NORMALS: no JVD Resp: COMMON NORMALS: normal respiratory effort, No retractions, No use of accessory muscles and clear to auscultation bilaterally AUSCULTATION: clear to auscultation bilaterally Cardio: COMMON NORMALS: no JVD, regular rate, regular rhythm and No murmurs present (Cardio) RATE: regular rate RHYTHM: regular rhythm GI: COMMON NORMALS: Soft to palpation and No hepatosplenomegaly present AUSCULTATION: Yes normoactive bowel sounds PALPATION: Yes Soft to palpation, No Tenderness to palpation present (GI), No Guarding due to palpation present (GI) and Yes No hepatosplenomegaly present Extremity: COMMON NORMALS: normal to inspection, capillary refill normal, no clubbing, cyanosis or edema, no calf tenderness and no pedal edema Neuro: SENSORIUM/ORIENTATION: Yes oriented to person, Yes oriented to place and Yes oriented to time Skin: COMMON NORMALS: no rashes or lesions noted GENERAL SKIN EXAM: no rashes or lesions noted Course Vital Signs: Vital signs: Vital Signs Temperature 98.4 F 07/11/21 10:53 Pulse Rate 98 07/11/21 14:11 Respiratory Rate 18 07/11/21 14:11 Blood Pressure 173/74 07/11/21 14:11 Pulse Oximetry 98 07/11/21 13:04 MDM - Abdominal Pain MDM Narrative: Medical decision making narrative: Labs and imaging reviewed as found on the chart. He is mildly dehydrated we will give him a liter of fluid in order to go ahead and discharge him back to the assisted. No significant findings on the CT if symptoms persist may need to further evaluation including possible endoscopy. Lab Data: Labs: Lab Results 07/11/21 07/11/21 07/11/21 11:01 11:40 11:40 WBC 8.8 10^3/uL 10^3/ uL (4.0-10.0) RBC 3.13 10^6/uL L 10 ^6/uL (4.1-5.3) Hgb 10.2 g/dL L g/dL (11.7-16.6) Hct 31.7 % L % (42.0-52.0) MCV 101.3 fl H fl (80-94) MCH 32.6 pg pg (28.0-34.0) MCHC 32.2 g/dL g/dL (30.0-36.0) RDW 12.2 % % (12.1-15.1) Plt Count 220 10^3/cmm 10^3 /cmm (130-400) MPV 10.7 fL H fL (7.4-10.4) Neut % (Auto) 72.0 % % Lymph % (Auto) 17.6 % % [place] % (Auto) 9.0 % % Eos % (Auto) 0.7 % % Baso % (Auto) 0.2 % % Neut # (Auto) 6.36 10^3/uL 10^3 /uL (1.8-7.7) Lymph # (Auto) 1.6 10^3/uL 10^3/ uL (0.8-4.8) [place] # (Auto) 0.8 10^3/uL 10^3/ uL (0.2-0.9) Eos # (Auto) 0.1 10^3/uL 10^3/ uL (0.0-0.8) Baso # (Auto) 0.0 10^3/uL 10^3/ uL (0.0-0.1) Nucleated RBC % (a uto) 0 % % Nucleated RBCs # 0.0 /100WBC /100W BC Sodium Potassium Chloride Carbon Dioxide Anion Gap BUN Creatinine GFR Calculation Glucose Calculated Osmolal ity Lactic Acid 2.1 mmol/L mmol/L (0.5-2.2) Calcium Total Bilirubin AST ALT Alkaline Phosphata se Creatine Kinase Total Protein Albumin Globulin Lipase Urine Color Yellow (Yellow) Urine Appearance Clear (CLEAR) Urine pH 7 (5-7) Ur Specific Gravit y 1.005 (1.005-1.030) Urine Protein Trace (Negative) Urine Glucose (UA) 4+ H (Normal) Urine Ketones Negative (Negative) Urine Blood 2+ H (Negative) Urine Nitrate Negative (Negative) Urine Bilirubin Neg (Negative) Urine Urobilinogen Norm mg/dL mg/dL (Negative) Ur Leukocyte Nevin ase Negative (Negative) Urine RBC None /hpf /hpf (0-2) Urine WBC Rare /hpf /hpf (0-5) Ur Squamous Epith Cells None /hpf /hpf (0-5) Amorphous Sediment Not Reportable Urine Bacteria None /hpf /hpf (NONE) 07/11/21 11:40 WBC RBC Hgb Hct MCV MCH MCHC RDW Plt Count MPV Neut % (Auto) Lymph % (Auto) [place] % (Auto) Eos % (Auto) Baso % (Auto) Neut # (Auto) Lymph # (Auto) [place] # (Auto) Eos # (Auto) Baso # (Auto) Nucleated RBC % (a uto) Nucleated RBCs # Sodium 136 mmol/L mmol/L (136-145) Potassium 4.9 mmol/L mmol/L (3.5-5.1) Chloride 99 mmol/L mmol/L (98-107) Carbon Dioxide 23 mmol/L mmol/L (22-29) Anion Gap 18.9 (5-19) BUN 60 mg/dL H mg/dL (8-23) Creatinine 2.9 mg/dL H mg/dL (0.7-1.2) GFR Calculation 21.7 mL/min L mL/ min (90-130) Glucose 205 mg/dL H mg/dL (65-115) Calculated Osmolal ity 305 mOsm/kg H mOs m/kg (285-295) Lactic Acid Calcium 9.1 mg/dL mg/dL (8.5-10.5) Total Bilirubin 0.2 mg/dL mg/dL (0.15-1.2) AST 24 U/L U/L (0-40) ALT 20 U/L U/L (0-41) Alkaline Phosphata se 97 IU/L IU/L (40-130) Creatine Kinase 369 U/L H* U/L (39-308) Total Protein 7.0 g/dL g/dL (6.6-8.7) Albumin 4.0 g/dL g/dL (3.5-5.2) Globulin 3.0 g/dL g/dL (1.3-4.6) Lipase 52 U/L U/L (13-60) Urine Color Urine Appearance Urine pH Ur Specific Gravit y Urine Protein Urine Glucose (UA) Urine Ketones Urine Blood Urine Nitrate Urine Bilirubin Urine Urobilinogen Ur Leukocyte Nevin ase Urine RBC Urine WBC Ur Squamous Epith Cells Amorphous Sediment Urine Bacteria Discharge Plan Discharge Patient Disposition: Home Clinical Impression: Abdominal pain, Mild dehydration Condition: Stable Prescriptions: No Action carvedilol 6.25 mg Tablet 6.25 mg feeding tube BID RF: 0 citalopram 10 mg/5 mL solution 40 mg feeding tube DAILY@07 RF: 0 Aspir-81 81 mg Tablet,Delayed Release (Dr/Ec) 81 mg feeding tube DAILY@07 RF: 0 GlucaGen HypoKit 1 mg Recon Soln 1 mg SUBCUT PRN RF: 0 Humalog Kobe KwikPen U-100 100 unit/mL Insulin Pen, Half-Unit See Rx Instructions .ROUTE .COMPLEX RF: 0 sulfasalazine 500 mg tablet 1,000 mg feeding tube TID@,, RF: 0 potassium chloride 20 mEq/15 mL Liquid 10 meq PO DAILY@08 RF: 0 lorazepam 0.5 mg Tablet 0.5 mg feeding tube BID RF: 0 risperidone 1 mg/mL solution 0.25 mg PO DAILY@07 RF: 0 sodium bicarbonate 650 mg Tablet 1,300 mg feeding tube TID@07,12,20 RF: 0 pyridoxine (vitamin B6) 50 mg Tablet 50 mg feeding tube DAILY@07 RF: 0 nystatin 100,000 unit/gram Powder 1 applic TOPICAL BID RF: 0 diclofenac sodium 1 % Gel 4 g TOPICAL BID RF: 0 Jevity 1.5 Mark 0.06 gram-1.5 kcal/mL Liquid See Rx Instructions .ROUTE .COMPLEX RF: 0 Lantus Solostar U-100 Insulin 100 unit/mL (3 mL) insulin pen 10 unit SUBCUT BID Qty: 3 RF: 0 Discharge Orders: Discharge ED (Routine); Ordered 07/11/21 Ordered By: Melvin Lipscomb Referrals: Rudolph Birmingham DO [Primary Care Provider] - Patient Instructions: Abdominal Pain (ED), Opioid Safety Coding Level of Care Code ED Annealing Operator for Chg Fwd Exam Comprehensive
[2021-07-11 12:11] LABS: Lactic Sepsis W/Reflex 2.1 mmol/L (0.5-2.2)
[2021-07-11 12:16] LABS: Alanine Aminotransferase 20 U/L (0-41); Alkaline Phosphatase 97 IU/L (40-130); Anion Gap 18.9 (5-19); Aspartate Amino Transferase 24 U/L (0-40); Blood Urea Nitrogen 60 mg/dL (8-23); Calcium 9.1 mg/dL (8.5-10.5); Carbon Dioxide 23 mmol/L (22-29); Chloride 99 mmol/L (98-107); Glomerular Filtration Rate 21.7 mL/min (90-130); Glucose 205 mg/dL (65-115); Lipase 52 U/L (13-60); Osmolality Calculated 305 mOsm/kg (285-295); Potassium 4.9 mmol/L (3.5-5.1); Sodium 136 mmol/L (136-145); Total Bilirubin 0.2 mg/dL (0.15-1.2)
[2021-07-11 12:21] LABS: Creatine Phosphokinase 369 U/L (39-308)
[2021-07-11 13:04] VITALS: BP 173/76; PULSE 92; RESP 17; O2SAT 98
[2021-07-11 13:34] LABS: Reflex Lactate Order REFLEX LACTIC ORDERD
[2021-07-11 14:11] VITALS: BP 173/74; PULSE 98; RESP 18
== END 2021-07-11 14:35 | disposition home or self-care (01) ==
PROVIDERS: Emergency Provider Family Medicine; PCP Internal Medicine
DX: R10.9 Unspecified abdominal pain (principal); E86.0 Dehydration; Z79.82 Long term (current) use of aspirin; Z79.4 Long term (current) use of insulin
CPT/HCPCS: 36415; 71045; 74176; 80053; 81001; 82550; 83605; 83690; 85025; 99283

== ENCOUNTER 2023-02-15 18:41 | Emergency (ER) | payer OTHER, SELFPAY ==
[2023-02-15 18:42] VITALS: BP 173/87; PULSE 95; RESP 18; TEMP 36.4; O2SAT 97; BMI 21.9
--- NOTE | 2023-02-15 18:57 | W.ED.GENADLT ---
HPI - General Adult General: Chief complaint: General Medical Stated complaint: g tube out Time Seen by Provider: 02/15/23 18:42 Source: EMS Mode of arrival: EMS Limitations: altered mental status History of Present Illness: 72-year-old male is here from assisted he has had a history of stroke he is nonverbal bedbound he uses a feeding tube for feedings is placed in his upper abdomen years ago and had a dislodged today sent here to have it replaced no history is available from patient due to his stroke Review of Systems General: Reports: ROS unobtainable due to mental status Physical Exam Const: COMMON NORMALS: negative for patient oriented x3 HENMT: COMMON NORMALS: normocephalic and atraumatic HEAD & SCALP: normocephalic and atraumatic Eye: COMMON NORMALS: conjunctivae normal CONJUNCTIVA: Yes conjunctivae normal Neck/C-Spine: COMMON NORMALS: supple Chest: COMMONS NORMALS: normal inspection of the chest Resp: COMMON NORMALS: normal respiratory effort Cardio: COMMON NORMALS: regular rate RATE: regular rate GI: OTHER: PEG tube's been dislodged from upper abdomen Extremity: COMMON NORMALS: normal to inspection Neuro: COMMON NORMALS: negative for patient oriented x3 Psych: COMMON NORMALS: negative for mental status grossly normal Skin: COMMON NORMALS: no rashes or lesions noted GENERAL SKIN EXAM: no rashes or lesions noted Procedures Feeding Tube Replacement Type of Tube: gastrostomy Insertion Site Prior to Procedure: clean Tube Used for Reinsertion: other (g tube) Bengali Tube Size (F): 18 Balloon size (mL): 10 Verification of Placement: KUB and gastrografin injection Tube Secured by: tape/dressing Patient Tolerated Procedure: well Course Vital Signs: Vital signs: Vital Signs Temperature 97.6 F 02/15/23 18:42 Pulse Rate 93 02/15/23 19:02 Respiratory Rate 16 02/15/23 19:02 Blood Pressure 156/75 02/15/23 19:02 Pulse Oximetry 96 02/15/23 19:02 Oxygen Delivery Me thod Room Air 02/15/23 18:42 [facility] - General Adult Medical Decision Making Patient presents here with G-tube dislodged I was able to place a new G-tube in x-ray confirmed placement he is stable for discharge Discharge Plan Discharge Patient Disposition: Home Clinical Impression: Gastrojejunostomy tube dislodgement Condition: Stable Prescriptions: No Action carvedilol 6.25 mg Tablet 6.25 mg feeding tube BID Rx Instructions: hold if sbp <110 or hr <60 citalopram 10 mg/5 mL solution 40 mg feeding tube DAILY@07 Aspir-81 81 mg Tablet,Delayed Release (Dr/Ec) 81 mg feeding tube DAILY@07 GlucaGen HypoKit 1 mg Recon Soln 1 mg SUBCUT PRN Humalog Kobe KwikPen U-100 100 unit/mL Insulin Pen, Half-Unit See Rx Instructions .ROUTE .COMPLEX Rx Instructions: sliding scale qid if bs less than 60 call md if bs is 150-200=0 units if bs is 201-250=2 units if bs is 251-300=4 units if bs is 301-350=6 units if bs is 351-400=8 units if bs is greater than 400 call md sulfasalazine 500 mg tablet 1,000 mg feeding tube TID@07,12,20 potassium chloride 20 mEq/15 mL Liquid 10 meq PO DAILY@08 lorazepam 0.5 mg Tablet 0.5 mg feeding tube BID Rx Instructions: @06:30,12:30 risperidone 1 mg/mL solution 0.25 mg PO DAILY@07 sodium bicarbonate 650 mg Tablet 1,300 mg feeding tube TID@07,12,20 pyridoxine (vitamin B6) 50 mg Tablet 50 mg feeding tube DAILY@07 nystatin 100,000 unit/gram Powder 1 applic TOPICAL BID Rx Instructions: APPLY TO BILATERAL BUTTOCKS FOR REDNESS diclofenac sodium 1 % Gel 4 g TOPICAL BID Rx Instructions: APPLY TO BLE FOR PAIN RELIEF Jevity 1.5 Mark 0.06 gram-1.5 kcal/mL Liquid See Rx Instructions .ROUTE .COMPLEX Rx Instructions: CONTINUOUS AT 50ML/HR FOR 21 HOURS DAILY Lantus Solostar U-100 Insulin 100 unit/mL (3 mL) insulin pen 10 unit SUBCUT BID Qty: 3 0RF Discharge Orders: Discharge ED (Routine); Ordered 02/15/23 Ordered By: Emily Bonilla Referrals: Rudolph Birmingham DO [Primary Care Provider] - 1-3 days Discharge Diet: Advance as tolerated Discharge Activity: Resume usual activity Patient Instructions: Tube Feeding (DC) Coding Level of Care Code ED Employment Trainer for Chg Rehan
[2023-02-15 19:02] VITALS: BP 156/75; PULSE 93; RESP 16; O2SAT 96
--- NOTE | 2023-02-15 19:19 | XRR_ITS ---
PROCEDURE INFORMATION: Exam: XR Abdomen Exam date and time: 02/15/2023 7:23 PM Age: 72 years old Clinical indication: Device placement; Gi device; Peg tube; Additional info: G tube placement TECHNIQUE: Imaging protocol: Radiologic exam of the abdomen. Views: Frontal supine view of the abdomen. 1 View. COMPARISON: CT abdomen pelvis con [id number] 07/11/2021 12:46 PM FINDINGS: Gastrointestinal tract: Contrast installation through the PEG tube demonstrates opacification of the stomach and proximal duodenum. Bones/joints: Unremarkable. XR/XR KUB [id number] IMPRESSION: Proper positioning of PEG tube.
[2023-02-15 20:27] VITALS: BP 190/106; PULSE 85; RESP 16; O2SAT 100
== END 2023-02-15 20:54 | disposition home or self-care (01) ==
PROVIDERS: Emergency Provider Emergency Medicine; PCP Internal Medicine
DX: K94.19 Other complications of enterostomy (principal); Z79.82 Long term (current) use of aspirin; Z79.4 Long term (current) use of insulin
CPT/HCPCS: 74018; 99283